=== PATIENT | male | born 1970 | race Caucasian/White ===

== ENCOUNTER 2021-09-08 09:32 | Inpatient (IN) | payer OTHER ==
[2021-09-08] MEDS ORDERED: IBUPROFEN 400 MG TABLET (FP) PO PRN (10:19)
[2021-09-08] MEDS ORDERED: NICOTINE 10 MG CARTRIDGE (INHALER) IH PRN (10:19)
[2021-09-08] MEDS ORDERED: guaiFENesin 200 MG/10 ML 10 ML UNIT-DOSE CUPS PO PRN (10:19)
[2021-09-08] MEDS ORDERED: LOPERAMIDE HCL 2 MG CAPSULE PO PRN (10:19)
[2021-09-08] MEDS ORDERED: ACETAMINOPHEN 325 MG TABLET (FP) PO PRN (10:19)
[2021-09-08] MEDS ORDERED: MAG HYDROX/AL HYDROX/SIMETH 30 ML UNIT-DOSE CUP PO PRN (10:19)
[2021-09-08] MEDS ORDERED: P-EPHED 60MG/TRIPROLIDI 2.5MG TABLET PO PRN (10:19)
[2021-09-08] MEDS ORDERED: MAGNESIUM HYDROX 2400MG/30ML ORAL SUSPENSION 30 ML CUP PO PRN (10:19)
[2021-09-08 10:30] VITALS: BMI 30.7
[2021-09-08] MEDS ORDERED: ALBUTEROL SO4 2 MG TABLET PO SCH (14:00)
[2021-09-08] MEDS: PRENATAL VITAMINS W/ FOLIC ACID TABLET (FP) PO SCH (14:51)
[2021-09-08] MEDS ORDERED: ALBUTEROL SO4 2 MG TABLET PO PRN (14:52)
[2021-09-08] MEDS: PANTOPRAZOLE 40 MG TABLET PO SCH (15:08)
[2021-09-08] MEDS: hydrOXYzine PAMOATE 25 MG CAPSULE (FP) PO SCH ×2 (15:08→17:43)
[2021-09-08] MEDS: NICOTINE 7 MG/24 HOURS TOPICAL PATCH TD SCH (15:09)
[2021-09-08] MEDS: ALBUTEROL SO4 HFA INHALER IH PRN (17:01)
[2021-09-08 17:06] LABS: HEMATOCRIT 39.3 % (35.4-49); HEMOGLOBIN 13.3 GM/dL (11.7-16.9); MCH 32.8 pg (25.7-33.7); MCHC 33.8 g/dl (32.0-35.9); MEAN CELL VOLUME 97.1 fl (80-96); MEAN PLT VOLUME 9.1 fl (7.5-11.1); PLATELET COUNT 258 10^3/uL (134-434); RBC 4.04 M/mm3 (4.00-5.60); RDW 13.5 % (11.9-15.9); WHITE BLOOD COUNT 11.9 K/mm3 (4.0-10.0)
[2021-09-08 17:29] LABS: CALCIUM 9.1 mg/dL (8.5-10.1)
[2021-09-08 17:30] LABS: ALBUMIN 3.7 g/dl (3.4-5.0); BLOOD UREA NITROGEN 19.9 mg/dL (7-18)
[2021-09-08 17:34] LABS: TOT PROT 7.4 g/dl (6.4-8.2)
[2021-09-08 17:35] LABS: BILIRUBIN,TOTAL 0.2 mg/dL (0.2-1)
[2021-09-08 17:52] LABS: SYPHILIS W/ RPR CONF NON-REACTIVE (NONREACTIVE)
[2021-09-08] MEDS: THIAMINE HCL 100 MG TABLET (FP) PO SCH (21:29)
[2021-09-08] MEDS: hydrOXYzine PAMOATE 25 MG CAPSULE (FP) PO PRN (21:30)
[2021-09-08] MEDS ORDERED: MELATONIN 5 MG TABLETS PO SCH (22:00)
[2021-09-09] MEDS: ALBUTEROL SO4 HFA INHALER IH PRN ×5 (03:34→21:38)
[2021-09-09] MEDS: hydrOXYzine PAMOATE 25 MG CAPSULE (FP) PO PRN (03:34)
[2021-09-09] MEDS: PRENATAL VITAMINS W/ FOLIC ACID TABLET (FP) PO SCH (10:13)
[2021-09-09] MEDS: PANTOPRAZOLE 40 MG TABLET PO SCH (10:13)
[2021-09-09] MEDS: NICOTINE 7 MG/24 HOURS TOPICAL PATCH TD SCH (10:13)
[2021-09-09] MEDS: LISINOPRIL 20 MG TABLET PO SCH (10:15)
[2021-09-09] MEDS: GABAPENTIN 400 MG CAPSULE PO SCH ×2 (12:29→21:38)
[2021-09-09] MEDS: SERTRALINE HCL 25 MG TABLET (FP) PO SCH (12:29)
[2021-09-09] MEDS: ARIPiprazole 15 MG TABLET PO SCH (12:30)
[2021-09-09] MEDS: DIVALPROEX SODIUM 500 MG TABLET E.C. PO SCH (21:37)
[2021-09-09] MEDS: THIAMINE HCL 100 MG TABLET (FP) PO SCH (21:38)
[2021-09-10] MEDS: ALBUTEROL SO4 HFA INHALER IH PRN ×4 (04:30→20:33)
[2021-09-10] MEDS: ARIPiprazole 15 MG TABLET PO SCH (09:49)
[2021-09-10] MEDS: GABAPENTIN 400 MG CAPSULE PO SCH ×2 (09:49→21:33)
[2021-09-10] MEDS: LISINOPRIL 20 MG TABLET PO SCH (09:50)
[2021-09-10] MEDS: SERTRALINE HCL 25 MG TABLET (FP) PO SCH (09:50)
[2021-09-10] MEDS: PANTOPRAZOLE 40 MG TABLET PO SCH (09:50)
[2021-09-10] MEDS: PRENATAL VITAMINS W/ FOLIC ACID TABLET (FP) PO SCH (09:50)
[2021-09-10] MEDS: NICOTINE 7 MG/24 HOURS TOPICAL PATCH TD SCH (09:51)
[2021-09-10 17:50] LABS: PH,URINE 5.5 (5.0-8.0); URINE APPEARANCE CLEAR; URINE BILIRUBIN NEGATIVE (NEGATIVE); URINE COLOR YELLOW; URINE GLUCOSE (UA) NEGATIVE (NEGATIVE); URINE KETONE TRACE (NEGATIVE); URINE LEUK ESTERASE NEGATIVE (NEGATIVE); URINE NITRITE NEGATIVE (NEGATIVE); URINE PROTEIN NEGATIVE (NEGATIVE); URINE UROBILINOGEN 0.2 mg/dL (0.2-1.0)
[2021-09-10] MEDS: DIVALPROEX SODIUM 500 MG TABLET E.C. PO SCH (21:33)
[2021-09-10] MEDS: THIAMINE HCL 100 MG TABLET (FP) PO SCH (21:33)
[2021-09-10] MEDS: SUVOREXANT 10 MG TABLET PO PRN (21:39)
[2021-09-11] MEDS: ALBUTEROL SO4 HFA INHALER IH PRN ×4 (06:22→19:21)
[2021-09-11] MEDS: LISINOPRIL 20 MG TABLET PO SCH (09:56)
[2021-09-11] MEDS: NICOTINE 7 MG/24 HOURS TOPICAL PATCH TD SCH (09:56)
[2021-09-11] MEDS: GABAPENTIN 400 MG CAPSULE PO SCH ×2 (09:56→21:25)
[2021-09-11] MEDS: PANTOPRAZOLE 40 MG TABLET PO SCH (09:56)
[2021-09-11] MEDS: PRENATAL VITAMINS W/ FOLIC ACID TABLET (FP) PO SCH (09:57)
[2021-09-11] MEDS: ARIPiprazole 15 MG TABLET PO SCH (09:57)
[2021-09-11] MEDS: SERTRALINE HCL 25 MG TABLET (FP) PO SCH (09:57)
[2021-09-11] MEDS ORDERED: PT OWN MED DRAWER 7, Y5N ONE (10:35)
[2021-09-11] MEDS: DIVALPROEX SODIUM 500 MG TABLET E.C. PO SCH (21:25)
[2021-09-11] MEDS: THIAMINE HCL 100 MG TABLET (FP) PO SCH (21:25)
[2021-09-11] MEDS: SUVOREXANT 10 MG TABLET PO PRN (21:29)
[2021-09-12] MEDS: ALBUTEROL SO4 HFA INHALER IH PRN ×3 (05:11→16:47)
[2021-09-12] MEDS: NICOTINE 7 MG/24 HOURS TOPICAL PATCH TD SCH (09:21)
[2021-09-12] MEDS: GABAPENTIN 400 MG CAPSULE PO SCH ×2 (09:21→21:23)
[2021-09-12] MEDS: ARIPiprazole 15 MG TABLET PO SCH (09:21)
[2021-09-12] MEDS: SERTRALINE HCL 25 MG TABLET (FP) PO SCH (09:22)
[2021-09-12] MEDS: PRENATAL VITAMINS W/ FOLIC ACID TABLET (FP) PO SCH (09:22)
[2021-09-12] MEDS: PANTOPRAZOLE 40 MG TABLET PO SCH (09:22)
[2021-09-12] MEDS: LISINOPRIL 20 MG TABLET PO SCH (09:23)
[2021-09-12] MEDS: MAGNESIUM CITRATE 300 ML BOTTLE PO PRN (14:39)
[2021-09-12] MEDS ORDERED: DOCUSATE SODIUM 100 MG CAPSULE (FP) PO PRN (14:55)
[2021-09-12] MEDS ORDERED: PT OWN MED DRAWER 7, Y5N ONE (16:51)
[2021-09-12] MEDS: DIVALPROEX SODIUM 500 MG TABLET E.C. PO SCH (21:22)
[2021-09-12] MEDS: THIAMINE HCL 100 MG TABLET (FP) PO SCH (21:23)
[2021-09-12] MEDS: HYDROCORTISONE 2.5% TOPICAL CREAM 30 GM TUBE TP PRN (21:24)
[2021-09-13] MEDS: ALBUTEROL SO4 HFA INHALER IH PRN ×4 (02:48→17:25)
[2021-09-13] MEDS: NICOTINE 7 MG/24 HOURS TOPICAL PATCH TD SCH (09:04)
[2021-09-13] MEDS: GABAPENTIN 400 MG CAPSULE PO SCH ×2 (09:04→21:22)
[2021-09-13] MEDS: ARIPiprazole 15 MG TABLET PO SCH (09:04)
[2021-09-13] MEDS: SERTRALINE HCL 25 MG TABLET (FP) PO SCH (09:04)
[2021-09-13] MEDS: LISINOPRIL 20 MG TABLET PO SCH (09:05)
[2021-09-13] MEDS: PRENATAL VITAMINS W/ FOLIC ACID TABLET (FP) PO SCH (09:05)
[2021-09-13] MEDS: PANTOPRAZOLE 40 MG TABLET PO SCH (09:05)
[2021-09-13] MEDS ORDERED: PT OWN MED DRAWER 7, Y5N ONE (20:54)
[2021-09-13] MEDS: THIAMINE HCL 100 MG TABLET (FP) PO SCH (21:22)
[2021-09-13] MEDS: DIVALPROEX SODIUM 500 MG TABLET E.C. PO SCH (21:22)
[2021-09-13] MEDS: SUVOREXANT 10 MG TABLET PO PRN (21:23)
[2021-09-14] MEDS: ALBUTEROL SO4 HFA INHALER IH PRN ×4 (00:12→17:57)
[2021-09-14] MEDS: PANTOPRAZOLE 40 MG TABLET PO SCH (09:47)
[2021-09-14] MEDS: GABAPENTIN 400 MG CAPSULE PO SCH ×2 (09:47→21:39)
[2021-09-14] MEDS: LISINOPRIL 20 MG TABLET PO SCH (09:47)
[2021-09-14] MEDS: NICOTINE 7 MG/24 HOURS TOPICAL PATCH TD SCH (09:47)
[2021-09-14] MEDS: ARIPiprazole 15 MG TABLET PO SCH (09:48)
[2021-09-14] MEDS: PRENATAL VITAMINS W/ FOLIC ACID TABLET (FP) PO SCH (09:48)
[2021-09-14] MEDS: SERTRALINE HCL 25 MG TABLET (FP) PO SCH (09:48)
[2021-09-14] MEDS: HYDROCORTISONE 2.5% TOPICAL CREAM 30 GM TUBE TP PRN (09:49)
[2021-09-14] MEDS: MAGNESIUM CITRATE 300 ML BOTTLE PO PRN (15:37)
[2021-09-14] MEDS: DIVALPROEX SODIUM 500 MG TABLET E.C. PO SCH (21:39)
[2021-09-14] MEDS: THIAMINE HCL 100 MG TABLET (FP) PO SCH (21:39)
[2021-09-14] MEDS: SUVOREXANT 10 MG TABLET PO PRN (21:42)
[2021-09-15] MEDS: ALBUTEROL SO4 HFA INHALER IH PRN ×2 (06:10→10:18)
[2021-09-15 06:41] VITALS: TEMP 97.3
[2021-09-15] MEDS: LISINOPRIL 20 MG TABLET PO SCH (09:34)
[2021-09-15] MEDS: PANTOPRAZOLE 40 MG TABLET PO SCH (09:34)
[2021-09-15] MEDS: PRENATAL VITAMINS W/ FOLIC ACID TABLET (FP) PO SCH (09:34)
[2021-09-15] MEDS: SERTRALINE HCL 25 MG TABLET (FP) PO SCH (09:34)
[2021-09-15] MEDS: GABAPENTIN 400 MG CAPSULE PO SCH (09:34)
[2021-09-15] MEDS: ARIPiprazole 15 MG TABLET PO SCH (09:35)
[2021-09-15] MEDS: NICOTINE 7 MG/24 HOURS TOPICAL PATCH TD SCH (09:36)
[2021-09-15] MEDS ORDERED: PT OWN MED DRAWER 7, Y5N ONE (10:20)
[2021-09-15 11:49] VITALS: BP 133/82; PULSE 77
== END 2021-09-15 10:42 | disposition home or self-care (01) | DRG 772 ==
LOC: YASAS 09:32 → Y3E 14:05
PROVIDERS: ADMIT Allergy & Immunology; ATTEND Allergy & Immunology
PROC: HZ42ZZZ Group Counseling for Substance Abuse Treatment, Cognitive-Behavioral (ICD-10-PCS; principal; 2021-09-08)
DX: F11.20 Opioid dependence, uncomplicated (principal); F10.20 Alcohol dependence, uncomplicated; F13.20 Sedative, hypnotic or anxiolytic dependence, uncomplicated; F17.210 Nicotine dependence, cigarettes, uncomplicated; F19.24 Other psychoactive substance dependence with psychoactive substance-induced mood disorder; F19.282 Other psychoactive substance dependence with psychoactive substance-induced sleep disorder; F19.280 Other psychoactive substance dependence with psychoactive substance-induced anxiety disorder; F63.81 Intermittent explosive disorder; F41.1 Generalized anxiety disorder; F60.2 Antisocial personality disorder; I10 Essential (primary) hypertension; J45.909 Unspecified asthma, uncomplicated; K21.9 Gastro-esophageal reflux disease without esophagitis; Z91.013 Allergy to seafood
CPT/HCPCS: 36415; 80053; 80164; 81003; 82962; 85027; 86780; 86803; 93005; 93010; C9803; U0003; U0005

== ENCOUNTER 2022-12-29 09:28 | Inpatient (IN) | payer OTHER ==
[2022-12-29 09:55] VITALS: BMI 29.7
[2022-12-29] MEDS ORDERED: POLYETHYLENE GLYCOL (HEALTHYLAX) 3350 17 GM PACKET PO PRN (10:19)
[2022-12-29] MEDS ORDERED: BENZOCAINE/MENTHOL (CHLORASEPTIC ) LOZENGE MM PRN (10:19)
[2022-12-29] MEDS ORDERED: NICOTINE POLACRILEX 2 MG GUM BUC PRN (10:19)
[2022-12-29] MEDS ORDERED: LOPERAMIDE HCL 2 MG CAPSULE PO PRN (10:19)
[2022-12-29] MEDS ORDERED: BISMUTH SUBSALICYLATE 524 MG/30 ML PO PRN (10:19)
[2022-12-29] MEDS ORDERED: ACETAMINOPHEN 325 MG TABLET (FP) PO PRN (10:19)
[2022-12-29] MEDS ORDERED: DICYCLOMINE HCL 10 MG CAPSULE PO PRN (10:19)
[2022-12-29] MEDS ORDERED: ONDANSETRON *ODT* 4 MG TABLET SL PRN (10:19)
[2022-12-29] MEDS ORDERED: NICOTINE 10 MG CARTRIDGE (INHALER) IH PRN (10:19)
[2022-12-29] MEDS ORDERED: guaiFENesin 600 MG TABLET.ER (FP) PO PRN (10:19)
[2022-12-29] MEDS ORDERED: MAGNESIUM HYDROX 2400MG/30ML ORAL SUSPENSION 30 ML CUP PO PRN (10:19)
[2022-12-29] MEDS ORDERED: P-EPHED 60MG/TRIPROLIDI 2.5MG TABLET PO PRN (10:19)
[2022-12-29] MEDS ORDERED: BENZONATATE 200 MG CAPSULE PO PRN (10:19)
[2022-12-29] MEDS ORDERED: chlordiazePOXIDE HCL 25 MG CAPSULE PO PRN (10:23)
[2022-12-29] MEDS: LISINOPRIL 20 MG TABLET PO SCH (11:05)
[2022-12-29] MEDS: chlordiazePOXIDE HCL 25 MG CAPSULE PO SCH ×3 (11:05→22:13)
[2022-12-29] MEDS ORDERED: chlordiazePOXIDE HCL 25 MG CAPSULE ONE (11:05)
[2022-12-29] MEDS ORDERED: LISINOPRIL 10 MG TABLET ONE (11:06)
[2022-12-29 15:22] LABS: HEMATOCRIT 34.4 % (35.4-49); HEMOGLOBIN 11.4 GM/dL (11.7-16.9); MCH 32.5 pg (25.7-33.7); MCHC 33.2 g/dl (32.0-35.9); MEAN CELL VOLUME 97.8 fl (80-96); MEAN PLT VOLUME 9.1 fl (7.5-11.1); PLATELET COUNT 243 10^3/uL (134-434); RBC 3.52 M/mm3 (4.00-5.60); RDW 13.8 % (11.9-15.9); WHITE BLOOD COUNT 8.8 K/mm3 (4.0-10.0)
[2022-12-29 15:26] LABS: ALBUMIN 3.2 g/dl (3.4-5.0); BLOOD UREA NITROGEN 18.5 mg/dL (7-18); CALCIUM 8.7 mg/dL (8.5-10.1)
[2022-12-29 15:29] LABS: CREATININE 1.1 mg/dL (0.55-1.3)
[2022-12-29 15:31] LABS: BILIRUBIN,TOTAL 0.5 mg/dL (0.2-1); TOT PROT 6.6 g/dl (6.4-8.2)
[2022-12-29] MEDS: ALBUTEROL SO4 HFA INHALER IH PRN (17:14)
[2022-12-29] MEDS: IBUPROFEN 600 MG TABLET (FP) PO PRN (17:16)
[2022-12-29] MEDS ORDERED: BUDESONIDE/FORMETEROL FUMARATE 80/4.5 mcg INHALER IH SCH (22:00)
[2022-12-29] MEDS: BUDESONIDE/FORMETEROL FUMARATE 80/4.5 mcg INHALER IH SCH (22:11)
[2022-12-29] MEDS: GABAPENTIN 100 MG CAPSULE PO SCH (22:12)
[2022-12-29] MEDS: THIAMINE HCL 100 MG TABLET (FP) PO SCH (22:12)
[2022-12-29] MEDS: MELATONIN 5 MG TABLETS PO PRN (22:12)
[2022-12-29] MEDS: traZODone HCL 50 MG TABLET (FP) PO SCH (22:12)
[2022-12-29] MEDS: DIVALPROEX SODIUM 500 MG TABLET E.C. PO SCH (22:13)
[2022-12-30] MEDS: chlordiazePOXIDE HCL 25 MG CAPSULE PO SCH ×4 (05:50→22:38)
[2022-12-30] MEDS: GABAPENTIN 100 MG CAPSULE PO SCH ×3 (05:50→22:20)
[2022-12-30] MEDS: IBUPROFEN 600 MG TABLET (FP) PO PRN ×2 (07:42→17:45)
[2022-12-30] MEDS: ALBUTEROL SO4 HFA INHALER IH PRN ×3 (07:42→20:35)
[2022-12-30] MEDS: LISINOPRIL 20 MG TABLET PO SCH (10:14)
[2022-12-30] MEDS: BUDESONIDE/FORMETEROL FUMARATE 80/4.5 mcg INHALER IH SCH ×2 (10:14→22:18)
[2022-12-30] MEDS: DIVALPROEX SODIUM 500 MG TABLET E.C. PO SCH ×2 (10:14→22:20)
[2022-12-30] MEDS: PRENATAL VITAMINS W/ FOLIC ACID TABLET (FP) PO SCH (10:15)
[2022-12-30] MEDS: SERTRALINE HCL 50 MG TABLET (FP) PO SCH (10:15)
[2022-12-30] MEDS: PANTOPRAZOLE 40 MG TABLET PO SCH (10:18)
[2022-12-30] MEDS: hydrOXYzine PAMOATE 25 MG CAPSULE (FP) PO PRN (20:40)
[2022-12-30] MEDS: THIAMINE HCL 100 MG TABLET (FP) PO SCH (22:19)
[2022-12-30] MEDS: MELATONIN 5 MG TABLETS PO PRN (22:19)
[2022-12-30] MEDS: traZODone HCL 50 MG TABLET (FP) PO SCH (22:20)
[2022-12-30] MEDS ORDERED: hydrOXYzine PAMOATE 50 MG CAPSULE (FP) PO ONE (22:40)
[2022-12-30] MEDS: ALBUTEROL SO4 2.5/IPRATROPIUM 0.5 INH SOL 3 ML VIAL.NEB. NEB SCH (22:56)
[2022-12-31] MEDS: GABAPENTIN 100 MG CAPSULE PO SCH ×3 (05:10→22:08)
[2022-12-31] MEDS: chlordiazePOXIDE HCL 25 MG CAPSULE PO SCH ×4 (05:10→22:08)
[2022-12-31] MEDS: ALBUTEROL SO4 2.5/IPRATROPIUM 0.5 INH SOL 3 ML VIAL.NEB. NEB SCH ×3 (08:46→17:45)
[2022-12-31] MEDS: IBUPROFEN 400 MG TABLET (FP) PO PRN (08:52)
[2022-12-31] MEDS: DIVALPROEX SODIUM 500 MG TABLET E.C. PO SCH ×2 (10:37→22:08)
[2022-12-31] MEDS: PANTOPRAZOLE 40 MG TABLET PO SCH (10:37)
[2022-12-31] MEDS: LISINOPRIL 20 MG TABLET PO SCH (10:38)
[2022-12-31] MEDS: SERTRALINE HCL 50 MG TABLET (FP) PO SCH (10:38)
[2022-12-31] MEDS: PRENATAL VITAMINS W/ FOLIC ACID TABLET (FP) PO SCH (10:39)
[2022-12-31] MEDS: BUDESONIDE/FORMETEROL FUMARATE 80/4.5 mcg INHALER IH SCH ×2 (10:40→22:08)
[2022-12-31] MEDS: MAG HYDROX/AL HYDROX/SIMETH 30 ML UNIT-DOSE CUP PO PRN (15:30)
[2022-12-31] MEDS: THIAMINE HCL 100 MG TABLET (FP) PO SCH (22:08)
[2022-12-31] MEDS: traZODone HCL 50 MG TABLET (FP) PO SCH (22:08)
[2022-12-31] MEDS: MELATONIN 5 MG TABLETS PO PRN (22:09)
[2022-12-31] MEDS: hydrOXYzine PAMOATE 25 MG CAPSULE (FP) PO PRN (22:10)
[2022-12-31] MEDS ORDERED: ALBUTEROL SO4 0.083% IH SOL 2.5 MG/3 ML VIAL.NEB. NEB SCH (22:45)
[2023-01-01] MEDS ORDERED: chlordiazePOXIDE HCL 10 MG CAPSULE PO PRN
[2023-01-01] MEDS: GABAPENTIN 100 MG CAPSULE PO SCH ×3 (05:18→22:06)
[2023-01-01] MEDS: chlordiazePOXIDE HCL 10 MG CAPSULE PO SCH ×4 (05:18→22:05)
[2023-01-01] MEDS: BUDESONIDE/FORMETEROL FUMARATE 80/4.5 mcg INHALER IH SCH ×2 (10:28→22:08)
[2023-01-01] MEDS: PRENATAL VITAMINS W/ FOLIC ACID TABLET (FP) PO SCH (10:28)
[2023-01-01] MEDS: SERTRALINE HCL 50 MG TABLET (FP) PO SCH (10:29)
[2023-01-01] MEDS: LISINOPRIL 20 MG TABLET PO SCH (10:29)
[2023-01-01] MEDS: PANTOPRAZOLE 40 MG TABLET PO SCH (10:29)
[2023-01-01] MEDS: DIVALPROEX SODIUM 500 MG TABLET E.C. PO SCH ×2 (10:29→22:07)
[2023-01-01] MEDS: traZODone HCL 50 MG TABLET (FP) PO SCH (22:07)
[2023-01-01] MEDS: THIAMINE HCL 100 MG TABLET (FP) PO SCH (22:08)
[2023-01-01] MEDS: ALBUTEROL SO4 HFA INHALER IH PRN (22:09)
[2023-01-02] MEDS: ALBUTEROL SO4 HFA INHALER IH PRN ×3 (02:23→19:11)
[2023-01-02] MEDS: GABAPENTIN 100 MG CAPSULE PO SCH ×3 (05:27→21:39)
[2023-01-02] MEDS: chlordiazePOXIDE HCL 10 MG CAPSULE PO SCH ×2 (05:27→17:07)
[2023-01-02] MEDS: MAG HYDROX/AL HYDROX/SIMETH 30 ML UNIT-DOSE CUP PO PRN (05:28)
[2023-01-02] MEDS: PRENATAL VITAMINS W/ FOLIC ACID TABLET (FP) PO SCH (10:13)
[2023-01-02] MEDS: BUDESONIDE/FORMETEROL FUMARATE 80/4.5 mcg INHALER IH SCH ×2 (10:13→21:37)
[2023-01-02] MEDS: PANTOPRAZOLE 40 MG TABLET PO SCH (10:14)
[2023-01-02] MEDS: SERTRALINE HCL 50 MG TABLET (FP) PO SCH (10:14)
[2023-01-02] MEDS: DIVALPROEX SODIUM 500 MG TABLET E.C. PO SCH ×2 (10:14→21:38)
[2023-01-02] MEDS: LISINOPRIL 20 MG TABLET PO SCH (10:14)
[2023-01-02] MEDS: IBUPROFEN 400 MG TABLET (FP) PO PRN (16:48)
[2023-01-02] MEDS: THIAMINE HCL 100 MG TABLET (FP) PO SCH (21:37)
[2023-01-02] MEDS: MELATONIN 5 MG TABLETS PO PRN (21:37)
[2023-01-02] MEDS: traZODone HCL 50 MG TABLET (FP) PO SCH (21:39)
[2023-01-03 01:02] VITALS: RESP 18
[2023-01-03] MEDS: ALBUTEROL SO4 HFA INHALER IH PRN (02:12)
[2023-01-03] MEDS ORDERED: chlordiazePOXIDE HCL 10 MG CAPSULE PO ONE (05:00)
[2023-01-03] MEDS: GABAPENTIN 100 MG CAPSULE PO SCH (05:18)
[2023-01-03 06:19] VITALS: TEMP 97.8
[2023-01-03 08:35] VITALS: BP 120/76; PULSE 82
== END 2023-01-03 08:58 | disposition home or self-care (01) | DRG 775 ==
LOC: YASAS 09:28 → Y3N 10:58
PROVIDERS: ADMIT Allergy & Immunology; ATTEND Surgery
PROC: HZ2ZZZZ Detoxification Services for Substance Abuse Treatment (ICD-10-PCS; principal; 2022-12-29)
DX: F10.230 Alcohol dependence with withdrawal, uncomplicated (principal); F19.24 Other psychoactive substance dependence with psychoactive substance-induced mood disorder; F31.9 Bipolar disorder, unspecified; E78.5 Hyperlipidemia, unspecified; I10 Essential (primary) hypertension; J45.909 Unspecified asthma, uncomplicated; K21.9 Gastro-esophageal reflux disease without esophagitis; H91.92 Unspecified hearing loss, left ear; G40.909 Epilepsy, unspecified, not intractable, without status epilepticus; W06.XXXA Fall from bed, initial encounter; Y92.230 Patient room in hospital as the place of occurrence of the external cause; S22.32XD Fracture of one rib, left side, subsequent encounter for fracture with routine healing; S62.102D Fracture of unspecified carpal bone, left wrist, subsequent encounter for fracture with routine healing
CPT/HCPCS: 36415; 71045-TC-FY; 80053; 80164; 85027; 86780; 94640; C9803-CS; U0003; U0005

== ENCOUNTER 2024-01-07 11:18 | Inpatient (IN) | payer OTHER ==
[2024-01-07] MEDS ORDERED: METHOCARBAMOL 500 MG TABLET PO PRN (12:42)
[2024-01-07] MEDS ORDERED: hydrOXYzine PAMOATE 25 MG CAPSULE (FP) PO PRN (12:42)
[2024-01-07] MEDS ORDERED: LOPERAMIDE HCL 2 MG CAPSULE PO PRN (12:42)
[2024-01-07] MEDS ORDERED: MAGNESIUM HYDROX 2400MG/30ML ORAL SUSPENSION 30 ML CUP PO PRN (12:42)
[2024-01-07] MEDS ORDERED: POLYETHYLENE GLYCOL (HEALTHYLAX) 3350 17 GM PACKET PO PRN (12:42)
[2024-01-07] MEDS ORDERED: IBUPROFEN 400 MG TABLET (FP) PO PRN (12:42)
[2024-01-07] MEDS ORDERED: ONDANSETRON *ODT* 4 MG TABLET SL PRN (12:42)
[2024-01-07] MEDS ORDERED: guaiFENesin 600 MG TABLET.ER (FP) PO PRN (12:42)
[2024-01-07] MEDS ORDERED: BISMUTH SUBSALICYLATE 524 MG/30 ML PO PRN (12:42)
[2024-01-07] MEDS ORDERED: ACETAMINOPHEN 325 MG TABLET (FP) PO PRN (12:42)
[2024-01-07] MEDS ORDERED: DICYCLOMINE HCL 10 MG CAPSULE PO PRN (12:42)
[2024-01-07] MEDS ORDERED: NALOXONE HCL 0.4 MG/ML VIAL IM PRN (12:42)
[2024-01-07] MEDS ORDERED: IBUPROFEN 600 MG TABLET (FP) PO PRN (12:42)
[2024-01-07] MEDS ORDERED: BENZOCAINE/MENTHOL (CHLORASEPTIC ) LOZENGE MM PRN (12:42)
[2024-01-07] MEDS ORDERED: MAG HYDROX/AL HYDROX/SIMETH 30 ML UNIT-DOSE CUP PO PRN (12:42)
[2024-01-07] MEDS ORDERED: NALOXONE HCL (KLOXXADO) 8 MG SPRAY NS PRN (12:42)
[2024-01-07] MEDS ORDERED: LISINOPRIL 10 MG TABLET ONE (13:03)
[2024-01-07] MEDS: LISINOPRIL 20 MG TABLET PO SCH (13:04)
[2024-01-07] MEDS ORDERED: chlordiazePOXIDE HCL 25 MG CAPSULE ONE (13:10)
[2024-01-07] MEDS: chlordiazePOXIDE HCL 25 MG CAPSULE PO PRN (13:13)
[2024-01-07] MEDS: chlordiazePOXIDE HCL 25 MG CAPSULE PO SCH (17:15)
[2024-01-07] MEDS: ALBUTEROL SO4 HFA INHALER IH PRN (17:20)
[2024-01-07] MEDS: THIAMINE HCL 100 MG TABLET (FP) PO SCH (22:40)
[2024-01-07] MEDS: MELATONIN 5 MG TABLETS PO SCH (22:40)
[2024-01-07] MEDS: DIVALPROEX SODIUM 500 MG TABLET E.C. PO SCH (22:40)
[2024-01-07] MEDS: BUDESONIDE/FORMETEROL FUMARATE 80/4.5 mcg INHALER IH SCH (22:40)
[2024-01-07] MEDS: ATORVASTATIN CA 80 MG TABLET (FP) PO SCH (22:41)
[2024-01-07] MEDS: BENZONATATE 200 MG CAPSULE PO PRN (22:44)
[2024-01-08] MEDS: PRENATAL VITAMINS W/ FOLIC ACID TABLET (FP) PO SCH (10:07)
[2024-01-08] MEDS: OMEPRAZOLE 40 MG PO SCH (10:07)
[2024-01-08] MEDS: NICOTINE 21 MG/24 HOURS TOPICAL PATCH TD SCH (10:10)
[2024-01-08] MEDS: risperiDONE 1 MG TABLET PO SCH (10:30)
[2024-01-08 11:12] LABS: HEMATOCRIT 40.6 % (35.4-49); HEMOGLOBIN 13.7 GM/dL (11.7-16.9); MCH 34.3 pg (25.7-33.7); MCHC 33.8 g/dl (32.0-35.9); MEAN CELL VOLUME 101.5 fl (80-96); MEAN PLT VOLUME 8.5 fl (7.5-11.1); PLATELET COUNT 171 10^3/uL (134-434); RDW 14.1 % (11.9-15.9); WHITE BLOOD COUNT 7.2 K/mm3 (4.0-10.0)
[2024-01-08 11:17] LABS: CHLORIDE 106 mmol/L (98-107); POTASSIUM 3.9 mmol/L (3.5-5.1); SODIUM 139 mmol/L (136-145)
[2024-01-08 11:21] LABS: ALBUMIN 3.1 g/dl (3.4-5.0); BLOOD UREA NITROGEN 7.3 mg/dL (7-18); CALCIUM 9.2 mg/dL (8.5-10.1); GLUCOSE,RANDOM 120 mg/dL (74-106)
[2024-01-08 11:22] LABS: ANION GAP 5 mmol/L (4-13); CO2 28 mmol/L (21-32)
[2024-01-08 11:25] LABS: CREATININE 0.8 mg/dL (0.55-1.3); SGOT/AST 74 U/L (15-37); SGPT/ALT 54 U/L (13-61)
[2024-01-08 11:26] LABS: TOT PROT 6.7 g/dl (6.4-8.2)
[2024-01-08 11:29] LABS: ALK PHOS 120 U/L (45-117)
[2024-01-08] MEDS: GABAPENTIN 100 MG CAPSULE PO SCH (13:31)
[2024-01-08] MEDS ORDERED: traZODone HCL 50 MG TABLET (FP) PO PRN (22:00)
[2024-01-09] MEDS: chlordiazePOXIDE HCL 25 MG CAPSULE PO SCH (05:33)
[2024-01-09] MEDS: SERTRALINE HCL 50 MG TABLET (FP) PO SCH (09:15)
[2024-01-09] MEDS ORDERED: FAMOTIDINE 20 MG TABLET PO SCH (10:00)
[2024-01-09 10:01] VITALS: BP 133/83; PULSE 74; RESP 18; TEMP 98.1
[2024-01-09 14:02] LABS: URINE APPEARANCE CLEAR; URINE BILIRUBIN 1+ (NEGATIVE); URINE COLOR DK YELLOW; URINE GLUCOSE (UA) NEGATIVE (NEGATIVE); URINE KETONE 1+ (NEGATIVE); URINE LEUK ESTERASE NEGATIVE (NEGATIVE); URINE NITRITE NEGATIVE (NEGATIVE); URINE PROTEIN TRACE (NEGATIVE)
[2024-01-10] MEDS ORDERED: chlordiazePOXIDE HCL 10 MG CAPSULE PO PRN
[2024-01-10] MEDS ORDERED: chlordiazePOXIDE HCL 10 MG CAPSULE PO SCH (05:00)
[2024-01-11] MEDS ORDERED: chlordiazePOXIDE HCL 10 MG CAPSULE PO SCH (05:00)
[2024-01-12] MEDS ORDERED: chlordiazePOXIDE HCL 10 MG CAPSULE PO ONE (05:00)
== END 2024-01-09 09:28 | disposition home or self-care (01) | DRG 775 ==
LOC: YASAS 11:18 → Y6N 12:49
PROVIDERS: ADMIT Allergy & Immunology; ATTEND Surgery
PROC: HZ2ZZZZ Detoxification Services for Substance Abuse Treatment (ICD-10-PCS; principal; 2024-01-07)
DX: F10.230 Alcohol dependence with withdrawal, uncomplicated (principal); F17.210 Nicotine dependence, cigarettes, uncomplicated; F31.9 Bipolar disorder, unspecified; F41.9 Anxiety disorder, unspecified; F63.81 Intermittent explosive disorder; E78.5 Hyperlipidemia, unspecified; G47.00 Insomnia, unspecified; H91.92 Unspecified hearing loss, left ear; I10 Essential (primary) hypertension; K21.9 Gastro-esophageal reflux disease without esophagitis
CPT/HCPCS: 36415; 80053; 80307; 81003; 85027; 86780; 93005; 93010

== ENCOUNTER 2024-10-22 18:27 | Inpatient (IN) | payer OTHER ==
[2024-10-22 18:47] VITALS: BMI 28.3
[2024-10-22] MEDS ORDERED: IBUPROFEN 400 MG TABLET (FP) PO PRN (20:00)
[2024-10-22] MEDS ORDERED: BENZONATATE 200 MG CAPSULE PO PRN (20:00)
[2024-10-22] MEDS ORDERED: MAG HYDROX/AL HYDROX/SIMETH 30 ML UNIT-DOSE CUP PO PRN (20:00)
[2024-10-22] MEDS ORDERED: BENZOCAINE/MENTHOL (CHLORASEPTIC ) LOZENGE MM PRN (20:00)
[2024-10-22] MEDS ORDERED: guaiFENesin 600 MG TABLET.ER (FP) PO PRN (20:00)
[2024-10-22] MEDS ORDERED: hydrOXYzine PAMOATE 25 MG CAPSULE (FP) PO PRN (20:00)
[2024-10-22] MEDS ORDERED: NALOXONE (NARCAN) HCL 4 MG/0.1 ML SPRAY NS PRN (20:00)
[2024-10-22] MEDS ORDERED: MAGNESIUM HYDROX 2400MG/30ML ORAL SUSPENSION 30 ML CUP PO PRN (20:00)
[2024-10-22] MEDS ORDERED: METHOCARBAMOL 500 MG TABLET PO PRN (20:00)
[2024-10-22] MEDS ORDERED: NICOTINE POLACRILEX 2 MG GUM BUC PRN (20:00)
[2024-10-22] MEDS ORDERED: ONDANSETRON *ODT* 4 MG TABLET SL PRN (20:00)
[2024-10-22] MEDS ORDERED: DICYCLOMINE HCL 10 MG CAPSULE PO PRN (20:00)
[2024-10-22] MEDS ORDERED: LOPERAMIDE HCL 2 MG CAPSULE PO PRN (20:00)
[2024-10-22] MEDS ORDERED: POLYETHYLENE GLYCOL (HEALTHYLAX) 3350 17 GM PACKET PO PRN (20:00)
[2024-10-22] MEDS ORDERED: BISMUTH SUBSALICYLATE 524 MG/30 ML PO PRN (20:00)
[2024-10-22] MEDS ORDERED: ACETAMINOPHEN 325 MG TABLET (FP) PO PRN (20:00)
[2024-10-22] MEDS ORDERED: LORazepam 1 MG TABLET PO PRN (20:03)
[2024-10-22] MEDS: LORazepam 2 MG TABLET PO SCH (22:39)
[2024-10-22] MEDS: THIAMINE 100 MG TABLET PO SCH (22:39)
[2024-10-22] MEDS: MELATONIN 5 MG TABLETS PO SCH (22:45)
[2024-10-22] MEDS: IBUPROFEN 600 MG TABLET (FP) PO PRN (22:47)
[2024-10-23] MEDS ORDERED: ALBUTEROL SO4 HFA INHALER IH PRN (05:41)
[2024-10-23] MEDS: PRENATAL VITAMINS W/ FOLIC ACID TABLET (FP) PO SCH (10:23)
[2024-10-23] MEDS: LISINOPRIL 20 MG TABLET PO SCH (10:23)
[2024-10-23] MEDS: PANTOPRAZOLE 40 MG TABLET PO SCH (10:24)
[2024-10-23] MEDS: SERTRALINE HCL 50 MG TABLET (FP) PO SCH (10:24)
[2024-10-23] MEDS: risperiDONE 1 MG TABLET PO SCH (10:24)
[2024-10-23] MEDS: NICOTINE 14 MG/24 HOURS TOPICAL PATCH TD SCH (10:27)
[2024-10-23] MEDS: BUDESONIDE/FORMETEROL FUMARATE 80/4.5 mcg INHALER IH SCH (10:27)
[2024-10-23 10:59] LABS: HEMATOCRIT 35.8 % (35.4-49); HEMOGLOBIN 11.6 GM/dL (11.7-16.9); MCH 34.1 pg (25.7-33.7); MCHC 32.5 g/dl (32.0-35.9); MEAN PLT VOLUME 8.8 fl (7.5-11.1); PLATELET COUNT 186 10^3/uL (134-434); RBC 3.41 M/mm3 (4.00-5.60); RDW 13.6 % (11.9-15.9); WHITE BLOOD COUNT 4.7 K/mm3 (4.0-10.0)
[2024-10-23 11:07] LABS: POTASSIUM 4.3 mmol/L (3.5-5.1); SODIUM 140 mmol/L (136-145)
[2024-10-23 11:09] LABS: BLOOD UREA NITROGEN 14.1 mg/dL (7-18); CALCIUM 9.1 mg/dL (8.5-10.1)
[2024-10-23 11:10] LABS: CO2 31 mmol/L (21-32); GLUCOSE,RANDOM 87 mg/dL (74-106)
[2024-10-23 11:11] LABS: ANION GAP 5 mmol/L (4-13); CHLORIDE 104 mmol/L (98-107)
[2024-10-23 11:12] LABS: CREATININE 0.7 mg/dL (0.55-1.3)
[2024-10-23 11:13] LABS: SGOT/AST 43 U/L (15-37); SGPT/ALT 29 U/L (13-61)
[2024-10-23 11:14] LABS: BILIRUBIN,TOTAL 0.5 mg/dL (0.2-1); TOT PROT 5.9 g/dl (6.4-8.2)
[2024-10-23 11:15] LABS: ALK PHOS 120 U/L (45-117)
[2024-10-23] MEDS: PNEUMOC 20-VAL CONJ-DIP CRM/PF 0.5 ML SYRINGE IM ONE (11:50)
[2024-10-23] MEDS: GABAPENTIN 100 MG CAPSULE PO SCH (13:55)
[2024-10-23] MEDS: ATORVASTATIN CA 80 MG TABLET (FP) PO SCH (22:07)
[2024-10-23] MEDS: traZODone HCL 50 MG TABLET (FP) PO PRN (22:07)
[2024-10-24] MEDS: LORazepam 1 MG TABLET PO SCH (05:36)
[2024-10-24] MEDS: NALTREXONE HCL 50 MG TABLET PO SCH (10:10)
[2024-10-24] MEDS: LACTULOSE 20 GM/30 ML UDC (FOR ORAL USE ONLY) PO SCH (17:45)
[2024-10-25] MEDS ORDERED: LORazepam 0.5 MG TABLET PO PRN
[2024-10-25] MEDS: LORazepam 0.5 MG TABLET PO SCH (05:30)
[2024-10-25 09:18] VITALS: BP 142/95; PULSE 78; RESP 18; TEMP 98.4
[2024-10-26] MEDS ORDERED: LORazepam 0.5 MG TABLET PO ONE (05:00)
== END 2024-10-25 09:42 | disposition home or self-care (01) | DRG 775 ==
LOC: YASAS 18:27 → Y6N 21:05
PROVIDERS: ADMIT Allergy & Immunology; ATTEND Allergy & Immunology
PROC: HZ2ZZZZ Detoxification Services for Substance Abuse Treatment (ICD-10-PCS; principal; 2024-10-22)
DX: F10.230 Alcohol dependence with withdrawal, uncomplicated (principal); F12.20 Cannabis dependence, uncomplicated; F17.210 Nicotine dependence, cigarettes, uncomplicated; F25.9 Schizoaffective disorder, unspecified; F31.9 Bipolar disorder, unspecified; F10.282 Alcohol dependence with alcohol-induced sleep disorder; F41.1 Generalized anxiety disorder; F63.81 Intermittent explosive disorder; F60.2 Antisocial personality disorder; H91.92 Unspecified hearing loss, left ear; I10 Essential (primary) hypertension; J45.909 Unspecified asthma, uncomplicated; K21.9 Gastro-esophageal reflux disease without esophagitis; Z96.21 Cochlear implant status
CPT/HCPCS: 36415; 80053; 80164; 80305; 80307; 82140; 85027; 86780; 90677; 93005; 93010; G0009

== ENCOUNTER 2024-11-19 11:30 | Inpatient (IN) | payer OTHER ==
[2024-11-19 11:51] VITALS: BMI 24.4
[2024-11-19] MEDS ORDERED: MAGNESIUM HYDROX 2400MG/30ML ORAL SUSPENSION 30 ML CUP PO PRN (12:30)
[2024-11-19] MEDS ORDERED: BENZONATATE 200 MG CAPSULE PO PRN (12:30)
[2024-11-19] MEDS ORDERED: ACETAMINOPHEN 325 MG TABLET (FP) PO PRN (12:30)
[2024-11-19] MEDS ORDERED: POLYETHYLENE GLYCOL (HEALTHYLAX) 3350 17 GM PACKET PO PRN (12:30)
[2024-11-19] MEDS ORDERED: ONDANSETRON *ODT* 4 MG TABLET SL PRN (12:30)
[2024-11-19] MEDS ORDERED: LOPERAMIDE HCL 2 MG CAPSULE PO PRN (12:30)
[2024-11-19] MEDS ORDERED: BENZOCAINE/MENTHOL (CHLORASEPTIC ) LOZENGE MM PRN (12:30)
[2024-11-19] MEDS ORDERED: NALOXONE (NARCAN) HCL 4 MG/0.1 ML SPRAY NS PRN (12:30)
[2024-11-19] MEDS ORDERED: guaiFENesin 600 MG TABLET.ER (FP) PO PRN (12:30)
[2024-11-19] MEDS ORDERED: BISMUTH SUBSALICYLATE 524 MG/30 ML PO PRN (12:30)
[2024-11-19] MEDS ORDERED: IBUPROFEN 400 MG TABLET (FP) PO PRN (12:30)
[2024-11-19] MEDS ORDERED: NICOTINE POLACRILEX 2 MG GUM BUC PRN (12:30)
[2024-11-19] MEDS ORDERED: IBUPROFEN 600 MG TABLET (FP) PO PRN (12:30)
[2024-11-19] MEDS ORDERED: chlordiazePOXIDE HCL 25 MG CAPSULE PO PRN (12:30)
[2024-11-19] MEDS ORDERED: hydrOXYzine PAMOATE 25 MG CAPSULE (FP) PO PRN (12:30)
[2024-11-19] MEDS: chlordiazePOXIDE HCL 25 MG CAPSULE PO SCH (17:22)
[2024-11-19] MEDS: THIAMINE 100 MG TABLET PO SCH (22:09)
[2024-11-19] MEDS: MELATONIN 5 MG TABLETS PO SCH (22:09)
[2024-11-19] MEDS ORDERED: ALBUTEROL SO4 HFA INHALER IH ONE (22:53)
[2024-11-19] MEDS: ALBUTEROL SO4 HFA INHALER IH PRN (22:54)
[2024-11-19] MEDS: BUDESONIDE/FORMETEROL FUMARATE 80/4.5 mcg INHALER IH SCH (22:57)
[2024-11-20] MEDS: risperiDONE 1 MG TABLET PO SCH (10:20)
[2024-11-20] MEDS: PRENATAL VITAMINS W/ FOLIC ACID TABLET (FP) PO SCH (10:20)
[2024-11-20] MEDS: NICOTINE 14 MG/24 HOURS TOPICAL PATCH TD SCH (10:20)
[2024-11-20] MEDS: SERTRALINE HCL 50 MG TABLET (FP) PO SCH (10:20)
[2024-11-20] MEDS: METHOCARBAMOL 500 MG TABLET PO PRN (10:23)
[2024-11-20] MEDS: LISINOPRIL 20 MG TABLET PO SCH (11:28)
[2024-11-20 11:56] LABS: HEMATOCRIT 37.2 % (35.4-49); HEMOGLOBIN 12.2 GM/dL (11.7-16.9); MCH 33.8 pg (25.7-33.7); MCHC 32.8 g/dl (32.0-35.9); PLATELET COUNT 199 10^3/uL (134-434); RBC 3.61 M/mm3 (4.00-5.60); RDW 13.2 % (11.9-15.9); WHITE BLOOD COUNT 6.8 K/mm3 (4.0-10.0)
[2024-11-20 12:06] LABS: POTASSIUM 4.1 mmol/L (3.5-5.1)
[2024-11-20 12:14] LABS: ALBUMIN 3.3 g/dl (3.4-5.0)
[2024-11-20 12:17] LABS: CREATININE 0.7 mg/dL (0.55-1.3)
[2024-11-20 12:19] LABS: BILIRUBIN,TOTAL 0.6 mg/dL (0.2-1); TOT PROT 6.5 g/dl (6.4-8.2)
[2024-11-20] MEDS: GABAPENTIN 100 MG CAPSULE PO SCH (13:30)
[2024-11-20] MEDS: LACTULOSE 20 GM/30 ML UDC (FOR ORAL USE ONLY) PO SCH (17:33)
[2024-11-20] MEDS: traZODone HCL 50 MG TABLET (FP) PO SCH (22:11)
[2024-11-21] MEDS: chlordiazePOXIDE HCL 25 MG CAPSULE PO SCH (05:59)
[2024-11-21] MEDS: MAG HYDROX/AL HYDROX/SIMETH 30 ML UNIT-DOSE CUP PO PRN (07:20)
[2024-11-21] MEDS: NALTREXONE HCL 50 MG TABLET PO SCH (10:27)
[2024-11-21] MEDS: DICYCLOMINE HCL 10 MG CAPSULE PO PRN (14:59)
[2024-11-22] MEDS: chlordiazePOXIDE HCL 10 MG CAPSULE PO SCH (05:58)
[2024-11-22] MEDS: PANTOPRAZOLE SOD 40 MG SUSPENSION PACKET PO SCH (11:49)
[2024-11-22] MEDS: PANTOPRAZOLE 40 MG TABLET PO SCH (12:23)
[2024-11-22] MEDS: chlordiazePOXIDE HCL 10 MG CAPSULE PO PRN (13:06)
[2024-11-22] MEDS ORDERED: PANTOPRAZOLE 40 MG TABLET PO SCH (16:00)
[2024-11-23] MEDS: chlordiazePOXIDE HCL 10 MG CAPSULE PO SCH (05:34)
[2024-11-23] MEDS: ATORVASTATIN CA 80 MG TABLET (FP) PO SCH (22:19)
[2024-11-24] MEDS: chlordiazePOXIDE HCL 10 MG CAPSULE PO ONE (05:34)
[2024-11-24 07:28] VITALS: PULSE 86; RESP 16
[2024-11-24 09:28] VITALS: BP 118/91; TEMP 98.7
== END 2024-11-24 09:00 | disposition home or self-care (01) | DRG 775 ==
LOC: YASAS 11:30 → Y6N 13:05
PROVIDERS: ADMIT Allergy & Immunology; ATTEND Allergy & Immunology
PROC: HZ2ZZZZ Detoxification Services for Substance Abuse Treatment (ICD-10-PCS; principal; 2024-11-19)
DX: F10.230 Alcohol dependence with withdrawal, uncomplicated (principal); F17.210 Nicotine dependence, cigarettes, uncomplicated; F10.282 Alcohol dependence with alcohol-induced sleep disorder; F63.81 Intermittent explosive disorder; E78.2 Mixed hyperlipidemia; I10 Essential (primary) hypertension; J45.20 Mild intermittent asthma, uncomplicated; K21.9 Gastro-esophageal reflux disease without esophagitis; M17.11 Unilateral primary osteoarthritis, right knee; Z96.21 Cochlear implant status; S62.101D Fracture of unspecified carpal bone, right wrist, subsequent encounter for fracture with routine healing; X58.XXXD Exposure to other specified factors, subsequent encounter
CPT/HCPCS: 36415; 73110-TC-RT-FY; 73130-TC-RT-FY; 80053; 80305; 80307; 85027; 86780; 93005; 93010

== ENCOUNTER 2025-02-15 16:28 | Inpatient (IN) | payer OTHER ==
[2025-02-15 18:40] VITALS: BMI 25.5
[2025-02-15] MEDS ORDERED: MAGNESIUM HYDROX 2400MG/30ML ORAL SUSPENSION 30 ML CUP PO PRN (19:07)
[2025-02-15] MEDS ORDERED: BISMUTH SUBSALICYLATE 524 MG/30 ML PO PRN (19:07)
[2025-02-15] MEDS ORDERED: LOPERAMIDE HCL 2 MG CAPSULE PO PRN (19:07)
[2025-02-15] MEDS ORDERED: NALOXONE (NARCAN) HCL 4 MG/0.1 ML SPRAY NS PRN (19:07)
[2025-02-15] MEDS ORDERED: BENZOCAINE/MENTHOL (CHLORASEPTIC ) LOZENGE MM PRN (19:07)
[2025-02-15] MEDS ORDERED: BENZONATATE 200 MG CAPSULE PO PRN (19:07)
[2025-02-15] MEDS ORDERED: DICYCLOMINE HCL 10 MG CAPSULE PO PRN (19:07)
[2025-02-15] MEDS ORDERED: IBUPROFEN 400 MG TABLET (FP) PO PRN (19:07)
[2025-02-15] MEDS ORDERED: IBUPROFEN 600 MG TABLET (FP) PO PRN (19:07)
[2025-02-15] MEDS ORDERED: METHOCARBAMOL 500 MG TABLET PO PRN (19:07)
[2025-02-15] MEDS ORDERED: MAG HYDROX/AL HYDROX/SIMETH 30 ML UNIT-DOSE CUP PO PRN (19:07)
[2025-02-15] MEDS ORDERED: hydrOXYzine PAMOATE 25 MG CAPSULE (FP) PO PRN (19:07)
[2025-02-15] MEDS ORDERED: guaiFENesin 600 MG TABLET.ER (FP) PO PRN (19:07)
[2025-02-15] MEDS ORDERED: ACETAMINOPHEN 325 MG TABLET (FP) PO PRN (19:07)
[2025-02-15] MEDS ORDERED: POLYETHYLENE GLYCOL (HEALTHYLAX) 3350 17 GM PACKET PO PRN (19:07)
[2025-02-15] MEDS: diazePAM 5 MG TABLET PO PRN (21:16)
[2025-02-15] MEDS: DIVALPROEX SODIUM 500 MG TABLET E.C. PO ONE ×2 (21:17→21:23)
[2025-02-15] MEDS: THIAMINE 100 MG TABLET PO SCH (21:17)
[2025-02-15] MEDS: MELATONIN 5 MG TABLETS PO SCH (21:17)
[2025-02-15] MEDS ORDERED: ALBUTEROL SO4 HFA INHALER IH ONE (21:24)
[2025-02-15] MEDS: ALBUTEROL SO4 HFA INHALER IH PRN (21:38)
[2025-02-15] MEDS: BUDESONIDE/FORMETEROL FUMARATE 80/4.5 mcg INHALER IH SCH (21:38)
[2025-02-15] MEDS: diazePAM 5 MG TABLET PO SCH (22:20)
[2025-02-16] MEDS: ONDANSETRON *ODT* 4 MG TABLET SL PRN (04:26)
[2025-02-16 09:28] VITALS: BP 132/87; PULSE 92; RESP 18; TEMP 97.7
[2025-02-16] MEDS ORDERED: PRENATAL VITAMINS W/ FOLIC ACID TABLET (FP) PO SCH (10:00)
[2025-02-16 10:06] LABS: HEMATOCRIT 33.7 % (40.1-51.0); HEMOGLOBIN 10.9 g/dL (13.7-17.5); MCHC 32.3 g/dl (32.3-36.5); MEAN CELL VOLUME 99.7 fl (79.0-92.2); MEAN PLT VOLUME 10.5 fl (9.4-12.4); PLATELET COUNT 158 x10^3/uL (163-337); RDW 15.9 % (12.2-16.1)
[2025-02-16 10:57] LABS: CHLORIDE 104 mmol/L (98-107); POTASSIUM 3.9 mmol/L (3.5-5.1); SODIUM 140 mmol/L (136-145)
[2025-02-16 11:00] LABS: ANION GAP 8 mmol/L (4-13); BLOOD UREA NITROGEN 7.6 mg/dL (7-18); CO2 27 mmol/L (21-32); GLUCOSE,RANDOM 88 mg/dL (74-106)
[2025-02-16 11:03] LABS: CREATININE 0.5 mg/dL (0.55-1.3); SGOT/AST 91 U/L (15-37); SGPT/ALT 54 U/L (13-61)
[2025-02-16 11:04] LABS: BILIRUBIN,TOTAL 1.2 mg/dL (0.2-1)
[2025-02-16 11:05] LABS: ALK PHOS 162 U/L (45-117); TOT PROT 6.1 g/dl (6.4-8.2)
[2025-02-17] MEDS ORDERED: diazePAM 5 MG TABLET PO SCH (06:00)
[2025-02-18] MEDS ORDERED: diazePAM 5 MG TABLET PO SCH (06:00)
[2025-02-19] MEDS ORDERED: diazePAM 5 MG TABLET PO ONE (06:00)
== END 2025-02-16 09:45 | disposition left against medical advice (07) | DRG 770 ==
LOC: YASAS 16:28 → Y3N 19:51
PROVIDERS: ADMIT Allergy & Immunology; ATTEND Allergy & Immunology
PROC: HZ2ZZZZ Detoxification Services for Substance Abuse Treatment (ICD-10-PCS; principal; 2025-02-15)
DX: F10.230 Alcohol dependence with withdrawal, uncomplicated (principal); F17.210 Nicotine dependence, cigarettes, uncomplicated; F25.9 Schizoaffective disorder, unspecified; F31.9 Bipolar disorder, unspecified; F41.9 Anxiety disorder, unspecified; F60.2 Antisocial personality disorder; I10 Essential (primary) hypertension; K21.9 Gastro-esophageal reflux disease without esophagitis; E78.2 Mixed hyperlipidemia; H91.92 Unspecified hearing loss, left ear; J45.20 Mild intermittent asthma, uncomplicated
CPT/HCPCS: 36415; 80053; 80305; 80307; 85027; 86780; 93005; 93010; Q0162

== ENCOUNTER 2025-03-09 16:15 | Inpatient (IN) | payer OTHER ==
[2025-03-09 16:43] VITALS: BMI 24.1
[2025-03-09] MEDS ORDERED: BENZOCAINE/MENTHOL (CHLORASEPTIC ) LOZENGE MM PRN (17:29)
[2025-03-09] MEDS ORDERED: IBUPROFEN 400 MG TABLET (FP) PO PRN (17:29)
[2025-03-09] MEDS ORDERED: BENZONATATE 200 MG CAPSULE PO PRN (17:29)
[2025-03-09] MEDS ORDERED: ACETAMINOPHEN 325 MG TABLET (FP) PO PRN (17:29)
[2025-03-09] MEDS ORDERED: hydrOXYzine PAMOATE 25 MG CAPSULE (FP) PO PRN (17:29)
[2025-03-09] MEDS ORDERED: ONDANSETRON *ODT* 4 MG TABLET SL PRN (17:29)
[2025-03-09] MEDS ORDERED: BISMUTH SUBSALICYLATE 524 MG/30 ML PO PRN (17:29)
[2025-03-09] MEDS ORDERED: MAGNESIUM HYDROX 2400MG/30ML ORAL SUSPENSION 30 ML CUP PO PRN (17:29)
[2025-03-09] MEDS ORDERED: LORazepam 1 MG TABLET PO PRN (17:29)
[2025-03-09] MEDS ORDERED: MAG HYDROX/AL HYDROX/SIMETH 30 ML UNIT-DOSE CUP PO PRN (17:29)
[2025-03-09] MEDS ORDERED: NICOTINE POLACRILEX 2 MG GUM BUC PRN (17:29)
[2025-03-09] MEDS ORDERED: NALOXONE (NARCAN) HCL 4 MG/0.1 ML SPRAY NS PRN (17:29)
[2025-03-09] MEDS ORDERED: guaiFENesin 600 MG TABLET.ER (FP) PO PRN (17:29)
[2025-03-09] MEDS ORDERED: LOPERAMIDE HCL 2 MG CAPSULE PO PRN (17:29)
[2025-03-09] MEDS ORDERED: POLYETHYLENE GLYCOL (HEALTHYLAX) 3350 17 GM PACKET PO PRN (17:29)
[2025-03-09] MEDS ORDERED: DIVALPROEX SODIUM 500 MG TABLET E.C. PO SCH (20:15)
[2025-03-09] MEDS: THIAMINE 100 MG TABLET PO SCH (22:37)
[2025-03-09] MEDS: MELATONIN 5 MG TABLETS PO SCH (22:37)
[2025-03-09] MEDS: LORazepam 2 MG TABLET PO SCH (22:38)
[2025-03-09] MEDS: BUDESONIDE/FORMETEROL FUMARATE 80/4.5 mcg INHALER IH SCH (22:39)
[2025-03-09] MEDS: DIVALPROEX SODIUM 500 MG TABLET E.C. PO SCH (23:00)
[2025-03-10] MEDS: PANTOPRAZOLE 40 MG TABLET PO SCH (06:03)
[2025-03-10 09:41] LABS: CHLORIDE 101 mmol/L (98-107); HEMATOCRIT 33.1 % (40.1-51.0); HEMOGLOBIN 10.9 g/dL (13.7-17.5); MCHC 32.9 g/dl (32.3-36.5); MEAN CELL VOLUME 100.6 fl (79.0-92.2); MEAN PLT VOLUME 10.8 fl (9.4-12.4); PLATELET COUNT 176 x10^3/uL (163-337); RDW 14.2 % (12.2-16.1); SODIUM 139 mmol/L (136-145)
[2025-03-10 09:46] LABS: CALCIUM 9.1 mg/dL (8.5-10.1)
[2025-03-10 09:47] LABS: ALBUMIN 2.8 g/dl (3.4-5.0); ANION GAP 11 mmol/L (4-13); BLOOD UREA NITROGEN 5.2 mg/dL (7-18); CO2 27 mmol/L (21-32); GLUCOSE,RANDOM 130 mg/dL (74-106)
[2025-03-10 09:50] LABS: CREATININE 0.7 mg/dL (0.55-1.3); SGOT/AST 61 U/L (15-37); SGPT/ALT 27 U/L (13-61)
[2025-03-10 09:52] LABS: BILIRUBIN,TOTAL 0.7 mg/dL (0.2-1); TOT PROT 5.9 g/dl (6.4-8.2)
[2025-03-10 09:53] LABS: ALK PHOS 151 U/L (45-117)
[2025-03-10] MEDS: PRENATAL VITAMINS W/ FOLIC ACID TABLET (FP) PO SCH (09:59)
[2025-03-10] MEDS: NICOTINE 14 MG/24 HOURS TOPICAL PATCH TD SCH (09:59)
[2025-03-10] MEDS: METHOCARBAMOL 500 MG TABLET PO PRN (10:02)
[2025-03-10] MEDS: risperiDONE 1 MG TABLET PO SCH (12:54)
[2025-03-10] MEDS: SERTRALINE HCL 25 MG TABLET (FP) PO SCH (13:10)
[2025-03-10] MEDS: SERTRALINE HCL 50 MG TABLET (FP) PO SCH (13:25)
[2025-03-10] MEDS: LISINOPRIL 20 MG TABLET PO SCH (15:21)
[2025-03-10] MEDS: traZODone HCL 50 MG TABLET (FP) PO SCH (22:26)
[2025-03-11] MEDS: LORazepam 1 MG TABLET PO SCH (05:52)
[2025-03-11] MEDS: IBUPROFEN 600 MG TABLET (FP) PO PRN (09:45)
[2025-03-11] MEDS: LISINOPRIL 20 MG TABLET PO SCH (09:46)
[2025-03-11] MEDS: DICYCLOMINE HCL 10 MG CAPSULE PO PRN (22:16)
[2025-03-12] MEDS ORDERED: LORazepam 0.5 MG TABLET PO PRN
[2025-03-12] MEDS: LORazepam 0.5 MG TABLET PO SCH (05:08)
[2025-03-12] MEDS: ALBUTEROL SO4 HFA INHALER IH PRN (16:43)
[2025-03-12 17:00] VITALS: TEMP 98.6
[2025-03-13 05:49] VITALS: BP 135/87; PULSE 89; RESP 16
[2025-03-13] MEDS: LORazepam 0.5 MG TABLET PO ONE (06:00)
== END 2025-03-13 06:33 | disposition home or self-care (01) | DRG 775 ==
LOC: YASAS 16:15 → Y6N 18:10
PROVIDERS: ADMIT Allergy & Immunology; ATTEND Allergy & Immunology
PROC: HZ2ZZZZ Detoxification Services for Substance Abuse Treatment (ICD-10-PCS; principal; 2025-03-09)
DX: F10.230 Alcohol dependence with withdrawal, uncomplicated (principal); F13.20 Sedative, hypnotic or anxiolytic dependence, uncomplicated; F12.20 Cannabis dependence, uncomplicated; F17.210 Nicotine dependence, cigarettes, uncomplicated; F25.9 Schizoaffective disorder, unspecified; F31.9 Bipolar disorder, unspecified; F41.9 Anxiety disorder, unspecified; E78.2 Mixed hyperlipidemia; G40.909 Epilepsy, unspecified, not intractable, without status epilepticus; H91.92 Unspecified hearing loss, left ear; I10 Essential (primary) hypertension; J45.20 Mild intermittent asthma, uncomplicated; K21.9 Gastro-esophageal reflux disease without esophagitis; M17.11 Unilateral primary osteoarthritis, right knee; Z87.19 Personal history of other diseases of the digestive system
CPT/HCPCS: 36415; 80053; 80305; 80307; 82962; 85027; 86780; 93005; 93010